=== PATIENT | female | born 1970 | race Caucasian/White ===

== ENCOUNTER → 2016-05-16 | Day surgery (SDC) | payer BC, OTHER ==
[2016-05-06 08:21] VITALS: Ht 165.1 cm; Wt 102.3 kg
[~2016-05-16] VITALS: Ht 165.1 cm; Wt 102.3 kg
[~2016-05-16] MED LIST: ATROPINE SULFATE 0.1 MG/ML 5ML SYR IV PRN; BCPILLS PO; CALC1CHW71 PO; EpHEDrine SULFATE INJ 50 MG/ML AMP IV PRN; LIDOCAINE HCL 2% 2 ML VIAL (20MG/ML) ONE; LISI-461 PO; PROPOFOL IV EMULSION 10 MG/ML 20 ML VIAL IV ONE; SODIUM CHLORIDE 0.9% 500ML 500 ML IV ONE
[2016-05-16 10:32] VITALS: TEMP 37.1
--- NOTE | 2016-05-16 10:55 | Endo History and Physical ---
History & Physical Date of Service: May 16, 2016. Chief Complaint: HX COLON CARCINOMA INSTITU, COLON POLY, COLON RESECTION Referring Physician: DR. RAJAT HOFF History of Present Illness 46 yo CF who present for colonoscopy secondary to history of colon cancer. Past Medical History Asthma, Reflux, Hypertension Past Surgical History Hx Cardiac Surgery: No Hx Internal Defibrillator: No Hx Pacemaker: No Hx Abdominal Surgery: Yes (COLON RESECTION) Hx of Implantable Prosthesis: No Hx Post-Op Nausea and Vomiting: Yes Hx Cancer Surgery: No Hx Thoracic Surgery: No Hx Orthopedic: No Hx Urinary Tract Surgery: No Family History Colon CA, Polyp Social History Smoking Status: Never Smoker Hx Substance Use: No Hx Alcohol Use: Yes (OCCASSIONALLY) Allergies Coded Allergies: No Known Allergies (Verified , 05/16/16) Current Medications Reported Home Medications Medications Dose Route/Sig Max Daily Dose Days Date Category Dose Instructions Calcium Chews (Calcium Carbonate-Cholecalcife) 1 Chw Chw 1 Tab PO BID 05/06/16 Reported Control Pills (Miscellaneous) Tab 1 Tab PO QAM 05/06/16 Reported Lisinopril 10 Mg Tab 2 Tab PO QAM 05/06/16 Reported IF BP INCREASES, TAKES 1 TAB IN EVENING Vital Signs Weight (Kilograms): 102.27 Height (Feet): 5 Height (Inches): 5 Date Time Temp Pulse Resp B/P Pulse Ox O2 Delivery O2 Flow Rate FiO2 05/16/16 10:32 37.1 89 16 164/86 99 Room Air 0 Physical Exam General Appearance: WD/WN, no apparent distress Respiratory/Chest: Auscultation: breath sounds normal Cardiovascular: Heart Auscultation: RRR Abdomen: Bowel Sounds: normal Inspection & Palpation: soft, non-distended, no tenderness, guarding & rebound Assessment and Plan Assessment: 46 yo CF who present for colonoscopy secondary to history of colon cancer. Plan: Proceed with colonoscopy.
--- NOTE | 2016-05-16 11:34 | Anesthesiology Progress Note ---
Anesthesia Post Op Note Date & Time May 16, 2016 at 11:33 Vital Signs Pain Intensity: 2 Vital Signs Past 12 Hours Date Time Temp Pulse Resp B/P Pulse Ox O2 Delivery O2 Flow Rate FiO2 05/16/16 10:32 37.1 89 16 164/86 99 Room Air 0 Notes Mental Status: alert / awake / arousable, participated in evaluation Pt Amnestic to Procedure: Yes Nausea / Vomiting: adequately controlled Pain: adequately controlled Airway Patency, RR, SpO2: stable & adequate BP & HR: stable & adequate Hydration State: stable & adequate Anesthetic Complications: no major complications apparent
--- NOTE | 2016-05-16 11:47 | Discharge Instructions ---
Endoscopy Patient Instructions Date / Procedure(s) Performed May 16, 2016. Colonoscopy Allergy Information Coded Allergies: No Known Allergies (Verified , 05/16/16) Discharge Date / Findings May 16, 2016. Colon polyp Internal hemorrhoids Normal appearing sigmoid colon anastomosis Medication Instructions Stopped Medication(s): LISINOPRIL LAST DOSE YESTERDAY 05/15/16 0700 OK to resume all medications today as prescribed. Reported Home Medications Medications Dose Route/Sig Max Daily Dose Days Date Category Dose Instructions Calcium Chews (Calcium Carbonate-Cholecalcife) 1 Chw Chw 1 Tab PO BID 05/06/16 Reported Control Pills (Miscellaneous) Tab 1 Tab PO QAM 05/06/16 Reported Lisinopril 10 Mg Tab 2 Tab PO QAM 05/06/16 Reported IF BP INCREASES, TAKES 1 TAB IN EVENING Provider Instructions Activity Restrictions - No exercising or heavy lifting for 24 hours. - Do not drink alcohol the day of the procedure. - Do not drive a car or operate machinery until the day after the procedure. - Do not make any important decisions or sign important papers in 24 hours after the procedure. Following Day: - Return to full activity which may include returning to work/school. Diet Start your diet with liquids and light foods (jello, soup, juice, toast). Then eat your usual diet if not nauseated. Treatment For Common After Affects For mild abdominal pain, bloating, or excessive gas: - Rest - Eat lightly - Lie on right side Follow-Up Information Follow-up with DR. RAJAT HOFF as scheduled Anesthesia Information What You Should Know You have had a procedure that required some medicine to reduce anxiety and discomfort. This treatment is called moderate sedation. After receiving the treatment, you may be sleepy, but you will be able to breathe on your own. The effects of the treatment may last for several hours. Follow these instructions along with Activity/Diet recommendations noted above: * Do NOT do anything where dizziness or clumsiness would be dangerous. * Rest quietly at home today, then you can be up and about tomorrow. * Have a responsible person stay with you the rest of today. * You may have had an I.V. today. If so, you may take the dressing off later today. Recommendations Call your doctor if: * Trouble breathing * Continuous vomiting for more than 24 hours * Temperature above 101 degrees * Severe abdominal pain or bloating * Pain not relieved by pain medicine ordered * There is increased drainage or redness from any incision * A large amount of rectal bleeding greater than 2-3 tablespoons. (If you had a polyp/s removed or have hemorrhoids, a small amount of blood - from the rectum is to be expected.) * You have any unanswered questions or concerns. IN THE EVENT OF A SERIOUS EMERGENCY, GO TO THE NEAREST EMERGENCY ROOM Your discharge instructions were prepared by provider Lam Hager. Patient Instructions Signature Page Janice Long Patient (or Guardian) Signature/Date: I have read and understand the instructions given to me by my caregivers. Caregiver/RN/Doctor Signature/Date: The above-named patient and/or guardian has received patient instructions on this date. + Original Patient Signature Page (only) stays with chart. Please make copy for patient.
--- NOTE | 2016-05-16 11:56 | GI REPORT ---
Procedure Date: 05/16/2016 10:54 AM Procedure: Colonoscopy Indications: High risk colon cancer surveillance: Personal history of colon cancer Medicines: Monitored Anesthesia Care Complications: No immediate complications. Estimated Blood Loss: Estimated blood loss: none. Procedure: Pre-Anesthesia Assessment: - Prior to the procedure, a History and Physical was performed, and patient medications and allergies were reviewed. The patient's tolerance of previous anesthesia was also reviewed. The risks and benefits of the procedure and the sedation options and risks were discussed with the patient. All questions were answered, and informed consent was obtained. Prior Anticoagulants: The patient has taken no previous anticoagulant or antiplatelet agents. ASA Grade Assessment: II - A patient with mild systemic disease. After reviewing the risks and benefits, the patient was deemed in satisfactory condition to undergo the procedure. After I obtained informed consent, the scope was passed under direct vision. Throughout the procedure, the patient's blood pressure, pulse, and oxygen saturations were monitored continuously. The scope was introduced through the anus and advanced to the terminal ileum. The colonoscopy was performed without difficulty. The patient tolerated the procedure well. The quality of the bowel preparation was good. The terminal ileum, ileocecal valve, appendiceal orifice, and rectum were photographed. Findings: A 4 mm polyp was found in the ascending colon. The polyp was sessile. The polyp was removed with a cold snare. Resection and retrieval were complete. There was evidence of a prior end-to-end colo-colonic anastomosis in the sigmoid colon. This was patent. The anastomosis was traversed. Non-bleeding internal hemorrhoids were found during retroflexion. The hemorrhoids were small. Impression: - One 4 mm polyp in the ascending colon, removed with a cold snare. Resected and retrieved. - Patent end-to-end colo-colonic anastomosis. - Non-bleeding internal hemorrhoids. Recommendation: - Resume previous diet. - Continue present medications. - Repeat colonoscopy for surveillance based on pathology results. - Return to primary care physician as previously scheduled. Lam Hager DO 05/16/2016 11:56:18 AM This report has been signed electronically. Note Initiated On: 05/16/2016 10:54 AM
[2016-05-16 12:00] VITALS: BP 149/86; PULSE 76; O2SAT 97
== END | disposition home or self-care (01) ==
LOC: C.GI 10:16
PROVIDERS: ATTEND Internal Medicine
DX: Z12.11 Encounter for screening for malignant neoplasm of colon (principal); Z85.038 Personal history of other malignant neoplasm of large intestine; D12.2 Benign neoplasm of ascending colon; K64.8 Other hemorrhoids; Z90.49 Acquired absence of other specified parts of digestive tract; K21.9 Gastro-esophageal reflux disease without esophagitis; J45.909 Unspecified asthma, uncomplicated; I10 Essential (primary) hypertension; Z80.0 Family history of malignant neoplasm of digestive organs

== ENCOUNTER → 2016-07-11 | Outpatient (CLI) | payer OTHER ==
[~2016-07-11] MED LIST changes: -ATROPINE SULFATE 0.1 MG/ML 5ML SYR IV PRN; -EpHEDrine SULFATE INJ 50 MG/ML AMP IV PRN; -LIDOCAINE HCL 2% 2 ML VIAL (20MG/ML) ONE; -PROPOFOL IV EMULSION 10 MG/ML 20 ML VIAL IV ONE; -SODIUM CHLORIDE 0.9% 500ML 500 ML IV ONE
== END | disposition home or self-care (01) ==
LOC: C.PAPS 11:55
PROVIDERS: ATTEND Obstetrics & Gynecology
DX: Z01.419 Encounter for gynecological examination (general) (routine) without abnormal findings (principal)

== ENCOUNTER → 2016-10-21 | Outpatient (CLI) | payer OTHER ==
[2016-10-21 10:10] LABS: ALKALINE PHOSPHATASE 44 U/L (45-117); ALT/SGPT 25 U/L (12-78); AST/SGOT 9 U/L (15-37); BLOOD UREA NITROGEN 13 mg/dl (7-18); BUN/CREATININE RATIO 16.9 (10-20); CARBON DIOXIDE 30 mmol/L (21-32); CHLORIDE 101 mmol/L (98-107); CHOLESTEROL 169 mg/dl (0-200); CHOLESTEROL/HDL RATIO 4.4; CREATININE 0.78 mg/dl (0.60-1.20); GLUCOSE 101 mg/dl (70-99); HDL CHOLESTEROL 38 mg/dl; LDL CHOLESTEROL CALCULATED 103 mg/dl; POTASSIUM 3.8 mmol/L (3.5-5.1); SODIUM 139 mmol/L (136-145); TRIGLYCERIDES 142 mg/dl (0-150); VERY LOW DENSITY LIPOPROT CALC 28 mg/dl
[2016-10-21 10:15] LABS: CALCIUM 9.5 mg/dl (8.5-10.1)
== END | disposition home or self-care (01) ==
LOC: C.LAB1850 07:55
PROVIDERS: ATTEND Nurse Practitioner Family
DX: Z13.220 Encounter for screening for lipoid disorders (principal); Z13.1 Encounter for screening for diabetes mellitus

== ENCOUNTER → 2017-04-29 | Outpatient (CLI) | payer OTHER ==
--- NOTE | 2017-04-30 13:47 | MAMMOGRAPHY REPORT ---
BILATERAL DIGITAL SCREENING MAMMOGRAM TOMOSYNTHESIS WITH CAD: 04/29/2017 CLINICAL HISTORY: Routine screening. Patient has no complaints. TECHNIQUE: Breast tomosynthesis in addition to standard 2D mammography was performed. Current study was also evaluated with a Computer Aided Detection (CAD) system. COMPARISON: Comparison is made to exams dated: 04/24/2016 mammogram, 04/20/2015 mammogram, 4 mammogram, 04/18/2013 mammogram, 04/14/2011 mammogram, and 04/11/2010 mammogram - [facility]. BREAST COMPOSITION: There are scattered areas of fibroglandular density in both breasts. FINDINGS: The parenchymal pattern is unchanged. No developing mass, architectural distortion or clus ter of suspicious microcalcifications is seen in either breast. IMPRESSION: ACR BI-RADS CATEGORY 2: BENIGN There is no mammographic evidence of malignancy. A 1 year screening mammogram is recommended. The pa tient will receive written notification of the results. Approximately 10% of breast cancers are not detected with mammography. A negative mammographic report should not delay biopsy if a clinically suggestive mass is present. Linda Washington M.D. ay/:04/29/2017 16:21:34 [employer]: Adelina Zuniga, [facility] letter sent: Normal 1/2 BI-RADS Code: ACR BI-RADS Category 2: Benign
== END | disposition home or self-care (01) ==
LOC: C.MAMM 08:51
PROVIDERS: ATTEND Obstetrics & Gynecology
DX: Z12.31 Encounter for screening mammogram for malignant neoplasm of breast (principal)

== ENCOUNTER → 2017-08-05 | Outpatient (CLI) | payer OTHER | END | disposition home or self-care (01) | LOC: C.PAPS 10:40 | PROVIDERS: ATTEND Physician Assistant | DX: Z12.4 Encounter for screening for malignant neoplasm of cervix (principal) ==